=== PATIENT | female | born 1935 | race Caucasian/White ===

== ENCOUNTER 2016-08-12 08:52 | Day surgery (SDC) | payer MEDICARE, OTHER ==
[~2016-08-12 08:52] MED LIST: Bupivacaine 0.25%/EPINEPHrine 1:200,000 10 ML SDV INJECT ONE; Bupivacaine 0.25%/EPINEPHrine 1:200,000 10 ML SDV ONE; Lactated Ringers 1,000 ML IV SCH; Lidocaine 2% 5 ML SDV ONE; Propofol 200 MG/20 ML SDV ONE; Sodium Chloride 0.9% 20 ML ONE; ceFAZolin 2 GM in Premix Bag 1 BAG IV ONE; diphenhydrAMINE 50 MG/ML SDV ONE; traMADol 50 MG Tab PO PRN
[2016-08-12 09:25] VITALS: BP 160/69
--- NOTE | 2016-08-12 09:42 | PCM.PREANE ---
Preanesthetic Assessment - Anesthesia/Transfusion/Family Hx Anesthesia History: Prior Anesthesia Reaction Other Type of Anesthesia Reaction Comment: PT STATES SHE IS HARD TO WAKE Family History of Anesthesia Reaction: No Transfusion History: No Prior Transfusion(s) Intubation History: Unknown - Review of Systems General: No Symptoms Pulmonary: No Symptoms Cardiovascular: No Symptoms Gastrointestinal: No symptoms Neurological: No Symptoms Other: Reports: None - Physical Assessment O2 Sat by Pulse Oximetry: 98 Respiratory Rate: 16 Vital Signs: Last Vital Signs Temp 37.1 C 08/12/16 09:23 Pulse 52 L 08/12/16 09:23 Resp 16 08/12/16 09:23 BP 160/69 H 08/12/16 09:23 Pulse Ox 98 08/12/16 09:23 Height: 1.65 m Weight: 56.245 kg ASA Class: 2 Mental Status: Alert & Oriented x3 Airway Class: Mallampati = 2 Dentition: Reports: [place](s) (x2 upper left) Thyro-Mental Finger Breadths: 2 Mouth Opening Finger Breadths: 3 ROM/Head Extension: Limited/Partial Lungs: Clear to auscultation, Normal respiratory effort Cardiovascular: Regular Rate, Regular Rhythm - Allergies Allergies/Adverse Reactions: Allergies Allergy/AdvReac Type Severity Reaction Status Date / Time acetaminophen Allergy Nausea and Verified 06/03/15 03:48 [From Darvocet-N] Vomiting ciprofloxacin [From Cipro] Allergy Rash Verified 06/03/15 03:48 ciprofloxacin HCl Allergy Rash Verified 06/03/15 03:48 [From Cipro] codeine Allergy Nausea and Verified 06/03/15 03:48 Vomiting Fish Containing Products Allergy Anaphylactic Verified 07/21/15 12:40 Shock meperidine HCl [From Demerol] Allergy Nausea and Verified 06/03/15 03:48 Vomiting oxycodone HCl [From Percocet] Allergy Nausea and Verified 06/03/15 03:48 Vomiting propoxyphene napsylate Allergy Nausea and Verified 06/03/15 03:48 [From Darvocet-N] Vomiting sertraline HCl [From Zoloft] Allergy Diarrhea Verified 07/21/15 12:40 shellfish derived Allergy Anaphylactic Verified 07/21/15 12:40 Shock Sulfa (Sulfonamide Allergy Hives Verified 06/03/15 03:48 Antibiotics) tramadol Allergy Nausea and Verified 06/03/15 03:48 Vomiting venlafaxine Allergy Hives Verified 06/03/15 03:48 - Blood Blood Available: No - Anesthesia Plan Pre-Op Medication Ordered: None - Acknowledgements Anesthesia Type Planned: MAC Pt an Appropriate Candidate for the Planned Anesthesia: Yes Alternatives and Risks of Anesthesia Discussed w Pt/Guardian: Yes Pt/Guardian Understands and Agrees with Anesthesia Plan: Yes PreAnesthesia Questionnaire HEENT History: Reports: Cataract Other HEENT History: wears glasses Cardiovascular History: Reports: Hypertension Respiratory History: Reports: None Gastrointestinal History: Reports: Gastritis, Other (See Below) Other Gastrointestinal History: recent bout of diarrhea, put on flagyl 08/04/16 Genitourinary History: Reports: UTI, Recurrent FUNDS DEVELOPMENT DIRECTOR History: Reports: Musculoskeletal History: Reports: Osteoporosis Neurological History: Reports: Other (See Below) (insomnia) Psychiatric History: Reports: Depression Endocrine/Metabolic History: Reports: None Hematologic History: Reports: None Immunologic History: Reports: None Oncologic (Cancer) History: Reports: Basal Cell Carcinoma Other Oncologic History: on face Dermatologic History: Reports: None Other Dermatologic History: ring worm - Infectious Disease History Infectious Disease History: Reports: Measles - Past Surgical History Head Surgeries/Procedures: Reports: None HEENT Surgical History: Reports: Cataract Surgery, Tonsillectomy Cardiovascular Surgical History: Reports: None Respiratory Surgical History: Reports: None GI Surgical History: Reports: Appendectomy, Cholecystectomy, Colonoscopy Female Surgical History: Reports: Hysterectomy, Tubal Ligation, Other (See Below) Other Female Surgeries/Procedures: bladder repair-twice Endocrine Surgical History: Reports: None Neurological Surgical History: Reports: None Musculoskeletal Surgical History: Reports: Knee Replacement (right), Other (See Below) Other Musculoskeletal Surgeries/Procedures:: bunionectomy, hammer toe repair- right Oncologic Surgical History: Reports: None Dermatological Surgical History: Reports: Skin Biopsy - SUBSTANCE USE Smoking Status *Q: Never Smoker Number of Drinks Per Day: 0 Recreational Drug Use History: No - HOME MEDS Home Medications: Home Meds Ca Carbonate/Vitamin D3/Vit K [Calcium + D Soft Chewable Tab] 1 tab PO DAILY [History] Flaxseed Oil 1,000 mg PO DAILY 06/03/15 [History] Multivitamin [Multivitamins] 1 each PO DAILY 06/03/15 [History] Turmeric [Curcumin] 1 cap PO DAILY 06/03/15 [History] Ubidecarenone [Co Q-10] 100 mg PO DAILY 06/03/15 [History] traZODone 100 mg PO BEDTIME 06/03/15 [History] Ascorbic Acid/Bioflavonoids [Vit C-Bioflavonoids SA] 500 mg PO DAILY 07/21/15 [ History] Moexipril/Hydrochlorothiazide [Moexipril-HCTZ 15-12.5 MG] 1 tab PO DAILY [History] metroNIDAZOLE [Flagyl] 500 mg PO TID 08/05/16 [History] - CURRENT (IN HOUSE) MEDS Current Meds: Current Medications Bupivacaine HCl/Epinephrine Bitart (Marcaine 0.25%/Epinephrine 1:200,000) 10 ml INJECT ONETIME ONE Stop: 08/12/16 08:01 Lactated Ringer's (Ringers, Lactated) 1,000 mls @ 125 mls/hr IV ASDIRECTED MARYCHUY Last Admin: 08/12/16 09:23 Dose: 125 mls/hr Tramadol HCl (Ultram) 50 mg PO Q4H PRN PRN Reason: Pain Discontinued Medications Diphenhydramine HCl (Benadryl) Confirm Administered Dose 50 mg .ROUTE .STK-MED ONE Stop: 08/12/16 07:11 Cefazolin Sodium/Dextrose 2 gm (/ Premix) 50 mls @ 100 mls/hr IV ONETIME ONE Stop: 08/12/16 08:29 Sodium Chloride (Normal Saline) Confirm Administered Dose 20 mls @ as directed .ROUTE .STK-MED ONE Stop: 08/12/16 07:14 Cefazolin Sodium/Dextrose (Ancef) Confirm Administered Dose 50 mls @ as directed .ROUTE .STK-MED ONE Stop: 08/12/16 09:23 Lidocaine (Xylocaine-Mpf 2%) Confirm Administered Dose 5 ml .ROUTE .STK-MED ONE Stop: 08/12/16 07:11 Propofol (Diprivan 20 Ml) Confirm Administered Dose 200 mg .ROUTE .STK-MED ONE Stop: 08/12/16 07:11 Sufentanil Citrate (Sufentanil Citrate) Confirm Administered Dose 50 mcg .ROUTE .STK-MED ONE Stop: 08/12/16 07:13
--- NOTE | 2016-08-12 11:23 | PCM48HPAN ---
Post Anesthesia Note - EVALUATION WITHIN 48HRS OF ANESTHETIC Vital Signs in Normal Range: Yes Patient Participated in Evaluation: Yes Respiratory Function Stable: Yes Airway Patent: Yes Cardiovascular Function Stable: Yes Hydration Status Stable: Yes Pain Control Satisfactory: Yes Nausea and Vomiting Control Satisfactory: Yes Mental Status Recovered: Yes - COMMENTS/OBSERVATIONS Free Text/Narrative:: no anesthesia problems. Patient skipped recovery room phase of postoperative care.
--- NOTE | 2016-08-12 15:12 | PCM.OPNOTE ---
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 Pre Op Diagnosis: left hand lesion Post-Op Diagnosis: left hand squamous cell Anesthesia Technique: Local, MAC Primary Surgeon: Xochitl Moreno State Fire Marshal: Mary Parekh Complications: None Condition: Good
--- NOTE | 2016-08-17 13:26 | OR ---
SURGEON: MOOKIE BANKS MD DATE OF PROCEDURE: 08/12/2016 PREOPERATIVE DIAGNOSIS: Left hand squamous cell carcinoma. POSTOPERATIVE DIAGNOSIS: Left hand squamous cell carcinoma. PROCEDURE: Excision of left hand squamous cell carcinoma 2 cm, total excision with margins and intermediate 2 cm closure. ANESTHESIA: Local MAC. SATELLITE INSTALLER: Mary Parekh. INDICATIONS: Ms. Varghese is an 81-year-old female with a dorsal left hand lesion. Risks and benefits of excision were discussed with her and she was in agreement to proceed. Risks were including, but not limited to, bleeding, infection, damage to underlying or overlying structures, possible need for future interventions and possible scarring. PROCEDURE IN DETAILS: After informed consent was obtained and placed on the chart, the patient was brought to the operating theater and laid in the supine position. After adequate local MAC anesthetic was obtained, the area was prepped and draped and a time-out was completed to confirm side and site. Attention was then paid to excision of the lesion after infiltration of local anesthesia. A 15 blade was used to dissect through the skin and meticulous hemostasis was obtained. The lesion was sent for pathology which came back as frozen section as a squamous cell with negative margins. The skin was then closed using deep Monocryl stitches and a running Monocryl for the skin. A Steri-Strip was used on the outside. The wound was then dressed with fluffs and a 2-inch GLORY wrap. All counts and needles were correct at the end of the case and patient tolerated this well. FOLLOWUP INSTRUCTIONS: The patient will see us in clinic in approximately 10 days or sooner if any problems, questions, or concerns. ADRI / RADHA /[id number]
== END 2016-08-12 12:20 | disposition home or self-care (01) ==
LOC: MW.SDS 08:52
PROVIDERS: ATTEND Plastic Surgery
PROC: 0JQK0ZZ Repair Left Hand Subcutaneous Tissue and Fascia, Open Approach (ICD-10-PCS; principal; 2016-08-12)
PROC: 0JBK0ZZ Excision of Left Hand Subcutaneous Tissue and Fascia, Open Approach (ICD-10-PCS; 2016-08-12)
DX: C44.629 Squamous cell carcinoma of skin of left upper limb, including shoulder (principal); L57.0 Actinic keratosis; K29.50 Unspecified chronic gastritis without bleeding; F32.9 Major depressive disorder, single episode, unspecified; G47.00 Insomnia, unspecified; M81.0 Age-related osteoporosis without current pathological fracture; Z79.899 Other long term (current) drug therapy; Z88.2 Allergy status to sulfonamides; Z88.8 Allergy status to other drugs, medicaments and biological substances; Z88.5 Allergy status to narcotic agent; Z91.013 Allergy to seafood
CPT/HCPCS: 11622; 12041; 88305; 88331; J0690; J1200; J7120; 00400; J2704